=== PATIENT | female | born 1955 | race Caucasian/White ===

== ENCOUNTER 2018-11-16 07:47 | Outpatient (CLI) | payer OTHER ==
--- NOTE | 2018-11-16 13:17 | MRI Report ---
Reason: PAIN IN UNSPECIFIED KNEE Procedure Date: 11/16/2018 Accession Number: [id number] / [id number] Procedure: MRI - Knee RT W/O CPT Code: FULL RESULT: EXAM: RIGHT KNEE MRI WITHOUT CONTRAST EXAM DATE: 11/16/2018 08:42 AM. CLINICAL HISTORY: Right knee pain for several years. Recent injury on elliptical machine. COMPARISON: None. TECHNIQUE: Multiplanar, multisequence T1-weighted and fluid-sensitive sequences of the knee without contrast. Other: None. FINDINGS: Bones: Mild tibiofemoral osteophytes are present. Reactive periarticular marrow edema is in the patellofemoral joint. No fractures. There is marrow edema in the posterior lateral tibial plateau periarticular region. Presumably this is reactive. Articular Cartilage: The central and lateral patellar articular cartilage is severely thinned. There is severe cartilage thinning of the lateral trochlea. The inferior medial femoral condylar articular cartilage has moderate thinning and surface irregularity. There is severe cartilage loss from the central lateral tibial plateau. Moderate cartilage thinning is in the medial compartment. Medial Meniscus: The medial meniscus is intact. Lateral Meniscus: The anterior horn of the lateral meniscus demonstrates a horizontal tear (series 601, 23). This extends into the body. Cruciate Ligaments: The anterior and posterior cruciate ligaments are intact. Collateral Ligaments: The medial collateral and lateral collateral ligamentous structures are intact. Tendons: The quadriceps, patellar, semimembranosus, and popliteus tendons are unremarkable. Musculature: No edema or fatty atrophy. Other: No effusion. A small popliteal cyst is present. No loose bodies. The medial and lateral retinacula are intact. Prepatellar subcutaneous edema is seen. IMPRESSION: 1. Mild osteoarthritis. 2. Tear of the lateral meniscus. 3. Small popliteal cyst. [facility] MUSCULOSKELETAL RADIOLOGY SECTION
== END 2018-11-16 07:48 | disposition home or self-care (01) ==
LOC: DI 07:47
PROVIDERS: ATTEND Family Medicine
DX: M17.11 Unilateral primary osteoarthritis, right knee (principal); S83.281A Other tear of lateral meniscus, current injury, right knee, initial encounter; M71.21 Synovial cyst of popliteal space [Baker], right knee